=== PATIENT | female | born 1990 | race Hispanic/Latino ===

== ENCOUNTER 2020-10-06 23:56 | Emergency (ER) | payer OTHER ==
[2020-10-07] MEDS ORDERED: CLINDAMYCIN HCL 150 MG CAP ONE (01:00)
[2020-10-07] MEDS ORDERED: IBUPROFEN 400 MG TABLET ONE (01:01)
[2020-10-07] MEDS ORDERED: LIDOCAINE HCL 2% JELLY 5 ML ONE (01:01)
[2020-10-07] MEDS ORDERED: IBUPROFEN 200 MG TAB ONE (01:02)
[2020-10-07] MEDS ORDERED: ACETAMINOPHEN EXTRA STRENGTH 500 MG TABLET ONE (01:02)
== END 2020-10-07 01:23 | disposition home or self-care (01) ==
LOC: EDH 23:56
DX: K02.9 Dental caries, unspecified (principal); K03.81 Cracked tooth; L03.211 Cellulitis of face; Z88.1 Allergy status to other antibiotic agents

== ENCOUNTER 2023-12-09 12:21 | Emergency (ER) | payer OTHER | END 2023-12-09 14:35 | disposition left against medical advice (07) | LOC: EDH 12:21 | DX: R10.9 Unspecified abdominal pain (principal); Z53.21 Procedure and treatment not carried out due to patient leaving prior to being seen by health care provider ==